=== PATIENT | female | born 1955 | race Caucasian/White ===

== ENCOUNTER 2021-10-23 19:19 | Emergency (ER) | payer MEDICARE, SELFPAY ==
--- NOTE | ~2021-10-23 | XR_ITS ---
[XR ribs LT 2V w CXR 2V ] INDICATION: Left rib and upper back pain TECHNIQUE: Frontal projection of the upper left ribs, frontal projection of the lower left ribs, obli que projection of all the left ribs, frontal inspiratory chest x-ray for interpretation. FINDINGS: There are no displaced rib fractures identified. There are no soft tissue abnormality see n. The lungs are clear. IMPRESSION: 1:No acute displaced rib fractures. Reviewed, dictated and finalized at location A.
--- NOTE | ~2021-10-23 | XR_ITS ---
XR wrist LT min 3V 10/23/2021 19:47 Indication: Status post fall. Wrist pain. Procedure: 4 views left wrist Comparison: No prior studies for comparison. Findings: No acute fracture, subluxation or dislocation. There is mild polyarticular osteoarthritis. There are corticated ossific densities ventral to the distal aspect of the ulna, likely related to re mote trauma. No foreign bodies. Impression: 1: No acute fracture. Reviewed, dictated and finalized at location A. Impression: 1: No acute fracture.
[2021-10-23 19:31] VITALS: BP 143/98; PULSE 82; RESP 16; TEMP 35.9; O2SAT 100
--- NOTE | 2021-10-23 19:41 | ED.FALL ---
HPI - Fall General Chief Complaint: Fall Stated Complaint: fall,injury Time Seen by Provider: 10/23/21 19:41 Source: patient Mode of arrival: ambulatory Limitations: no limitations History of Present Illness HPI Narrative: Patient presents today complaining of left rib pain, left wrist pain, head injury after falling at 930 this morning outside her home while walking her dog. She struck her left orbit area on the curb and fell onto her left outstretched wrist and left chest area. She is experiencing some intermittent sharp left eye pain and states she did have some blurred vision in the left eye initially, but this has since resolved. She currently rates pain 8/10 and has been applying ice to the forehead and taking Tylenol with some relief. She currently takes Plavix after cardiac stents. History of back surgeries. Denies shortness of breath, but states the pain in her left ribs increases with deep breath and movement. Visual acuity 20/50 bilaterally. Not wearing contacts at this time. Related Data Home Medications Medication Instructions Recorded Confirmed alirocumab 75 mg/mL subcutaneous 75 ea subcut USEASDIRECTD 10/23/21 10/23/21 pen injector (Praluent Pen) amlodipine 5 mg tablet 5 tablet PO DAILY 10/23/21 10/23/21 carvedilol 25 mg tablet 25 tablet PO DAILY 10/23/21 10/23/21 clopidogrel 75 mg tablet 75 tablet PO DAILY 10/23/21 10/23/21 potassium chloride 10 mEq 10 tablet PO DAILY 10/23/21 10/23/21 tablet,extended release Allergies Allergy/AdvReac Type Severity Reaction Status Date / Time gabapentin [From Neurontin] Allergy Unknown Verified 10/23/21 19:57 lisinopril Allergy Unknown Verified 10/23/21 19:57 Review of Systems Review of Systems: CONSTITUTIONAL: Denies body aches, fever, chills, or sweats. EYES: Denies redness, or discharge.+ Left eye pain, left eye blurred vision?resolved ENT: Denies rhinorrhea, congestion, sore throat, or otalgia. CARDIOVASCULAR: Denies chest pain, palpitations, or edema. RESPIRATORY: Denies cough or dyspnea.+ Rib pain with deep breath GASTROINTESTINAL: Denies abdominal pain, nausea, vomiting, or diarrhea. GENITOURINARY: Denies dysuria or hematuria. SKIN: Denies rash, itching, or wounds. MUSCULOSKELETAL: Denies back pain, or myalgia.+ Wrist pain NEUROLOGIC: Denies headache, numbness, tingling, or weakness. PSYCH: Denies depression or anxiety. [facility] Surgical History Surgical History H/O heart artery stent Previous back surgery Comments At time of signature, I have reviewed and agree with nursing past medical, surgical, social and family history unless otherwise noted. Please see nursing chart for further information. There is no relevant family history pertinent to the presenting complaint Exam Narrative: GENERAL: Well-appearing, well-nourished, and in no acute distress. HEAD: Normocephalic. EYES: EOMI. PERRL. No nystagmus noted to the left eye. No redness or drainage. Conjunctivae normal. Left eye: Tenderness to the inferior and superior orbit. 2 x 2 centimeter area of ecchymosis and localized edema to the lateral left orbit/latter-day area. ENT: Mucous membranes pink and moist. Nares clear. No rhinorrhea. TMs normal bilaterally. Throat normal. Uvula midline. NECK: Normal AROM. Supple. No lymphadenopathy. CHEST: No respiratory distress. Clear to auscultation. Large area of ecchymosis to the left breast and left anterior chest under the left breast. These areas are mildly tender to palpation. HEART: Regular rate and rhythm. No murmur appreciated. Normal peripheral pulses. EXTREMITIES: Left wrist: Tenderness to the distal radius with scant edema. No ecchymosis. Distal sensation intact. Capillary refill normal. Radial pulse normal. Range of motion normal with increased pain. SKIN: Warm, dry, no rash. Capillary refill normal. Normal skin turgor. NEURO: No focal deficits. Alert and oriented x3. Gait steady
== END 2021-10-23 20:08 | disposition short-term general hospital (02) ==
PROVIDERS: Emergency Provider Nurse Practitioner
DX: S60.212A Contusion of left wrist, initial encounter (principal); S00.83XA Contusion of other part of head, initial encounter; S20.219A Contusion of unspecified front wall of thorax, initial encounter; H57.12 Ocular pain, left eye; W19.XXXA Unspecified fall, initial encounter; I10 Essential (primary) hypertension
CPT/HCPCS: 71046; 71100; 73110; 99204; G0463

== ENCOUNTER 2021-10-23 20:29 | Emergency (ER) | payer MEDICARE, SELFPAY ==
--- NOTE | ~2021-10-23 | CT_ITS ---
EXAMINATION: CT BRAIN W/O DATE: 10/23/2021 21:17 INDICATION: Status post fall. Patient on blood thinners. TECHNIQUE: Computed tomography (CT) of the head was performed without intravenous contrast. The dose- length product was 605.33 mGy-cm. Automated exposure control and iterative reconstruction technique w ere employed. COMPARISON: No prior studies for comparison. FINDINGS: Normal brain parenchymal volume for age. Normal can-white differentiation. No acute intrac ranial hemorrhage, infarction, mass or mass effect. There are scattered mild periventricular and subc ortical white matter changes, most likely related to small vessel ischemic disease (microangiopathy). No ventriculomegaly or midline shift. Midline sagittal images demonstrate a normal corpus callosum, c raniovertebral junction and sella turcica. Basilar cisterns are patent. Paranasal sinuses and mastoids are pneumatized. No depressed skull fractures. IMPRESSION: 1. No acute intracranial abnormality. Reviewed, dictated and finalized at location A.
[2021-10-23 20:44] VITALS: BP 129/71; PULSE 72; RESP 16; TEMP 36.4; O2SAT 96
--- NOTE | 2021-10-23 21:40 | ED.FALL ---
HPI - Fall General Chief Complaint: Fall Stated Complaint: fall/hit head/on plavix Time Seen by Provider: 10/23/21 21:24 Source: patient History of Present Illness HPI Narrative: Patient presents after a fall. Patient was walking her dog she missed stepped off the curb fell again and struck her head. The event occurred around 10:00 this morning. She is monitoring her symptoms but headache as well as pain in her left extremities so she went to an urgent care. She had plain films of her left wrist and chest which were unremarkable however patient is on Plavix and was referred to the ER for further evaluation. She denies any focal numbness or weakness denies any changes in vision she denies any nausea or vomiting. Patient denies any loss of consciousness Related Data Home Medications Medication Instructions Recorded Confirmed alirocumab 75 mg/mL subcutaneous 75 ea subcut USEASDIRECTD 10/23/21 10/23/21 pen injector (Praluent Pen) amlodipine 5 mg tablet 5 tablet PO DAILY 10/23/21 10/23/21 carvedilol 25 mg tablet 25 tablet PO DAILY 10/23/21 10/23/21 clopidogrel 75 mg tablet 75 tablet PO DAILY 10/23/21 10/23/21 potassium chloride 10 mEq 10 tablet PO DAILY 10/23/21 10/23/21 tablet,extended release Allergies Allergy/AdvReac Type Severity Reaction Status Date / Time gabapentin [From Neurontin] Allergy Unknown Verified 10/23/21 19:57 lisinopril Allergy Unknown Verified 10/23/21 19:57 Review of Systems Review of Systems: CONSTITUTIONAL: Denies fever, chills, or sweats. EYES: Denies visual changes, redness, or discharge. ENT: Denies rhinorrhea, congestion, sore throat, or otalgia. CARDIOVASCULAR: Denies chest pain, palpitations, or edema. RESPIRATORY: Denies cough or dyspnea. GASTROINTESTINAL: Denies abdominal pain, nausea, vomiting, or diarrhea. GENITOURINARY: Denies dysuria or hematuria. SKIN: Denies rash or itching. MUSCULOSKELETAL: Denies back pain, joint pain, or myalgia. NEUROLOGIC: Denies numbness, dizziness, or weakness. PSYCHIATRIC: Denies anxiety or depression. All systems reviewed & are unremarkable except as noted in HPI and below PMFSH Surgical History Surgical History H/O heart artery stent Previous back surgery Exam Narrative: GENERAL: Well-appearing, well-nourished, and in no acute distress. HEAD: Normocephalic, bruising noted to the left orbit EYES: PERRLA and EOMI. ENT: Nares clear, no rhinorrhea or epistaxis. Mucous membranes moist. NECK: Supple. No masses. No JVD EXTREMITIES: Normal range of motion. No edema. SKIN: Warm, dry, no rash. NEURO: Cranial nerves II through XII are intact patient is 5 out of 5 strength in all extremities sensation intact to light touch in all extremities alert and oriented x3. PSYCH: Normal mood and affect. Course Reevaluation(s) Reevaluation #1: Patient resting comfortably results and plan reviewed with patient. Patient is comfortable outpatient plan. Date: 10/23/21 Time: 21:43 Vital Signs Vital signs: Vital Signs Temperature 36.4 C L 10/23/21 20:44 Pulse Rate 72 10/23/21 20:44 Respiratory Rate 16 10/23/21 20:44 Blood Pressure 129/71 10/23/21 20:44 Pulse Oximetry 96 10/23/21 20:44 Oxygen Delivery Room Air 10/23/21 20:44 Temperature 36.4 C L 10/23/21 20:44 Pulse Rate 72 10/23/21 20:44 Respiratory Rate 16 10/23/21 20:44 Blood Pressure 129/71 10/23/21 20:44 Pulse Oximetry 96 10/23/21 20:44 Oxygen Delivery Room Air 10/23/21 20:44 MDM - Fall MDM Narrative Medical decision making narrative: H&P as above, vss, pt looks clinically well, exam without focal neurological deficits, imaging without acute process, additional labs/img considered, symptomatic relief available as needed, on reevaluation pt continues to looks clinically well. Suspect mechanical event with a closed head injury dns intracranial hemorrhage, cord compromise, spinal fracture, major neurovascul
== END 2021-10-23 21:55 | disposition home or self-care (01) ==
PROVIDERS: Emergency Provider Emergency Medicine
DX: S05.12XA Contusion of eyeball and orbital tissues, left eye, initial encounter (principal); Z95.5 Presence of coronary angioplasty implant and graft; Z79.02 Long term (current) use of antithrombotics/antiplatelets; W10.1XXA Fall (on)(from) sidewalk curb, initial encounter; Y93.K1 Activity, walking an animal
CPT/HCPCS: 70450; 71046; 71100; 73110; 99284